=== PATIENT | male | born 1980 | race Caucasian/White ===

== ENCOUNTER 2019-11-28 10:34 | Day surgery (SDC) | payer SELFPAY ==
[~2019-11-28] VITALS: Ht 182.9 cm; Wt 118.7 kg
[2019-11-28] VITALS (17 sets, daily range): BP systolic 119–139; BP diastolic 73–89
[2019-11-28] MEDS: CEFAZOLIN SODIUM 1 GM VIAL IVP SCH ×2 (12:30→15:37)
[2019-11-28 12:45] LABS: BASOPHILS % (AUTO) 0.7 % (0.0-5.0); EOSINOPHILS % (AUTO) 1.2 % (0.0-8.0); HEMATOCRIT 45.6 % (42-54); MEAN CORPUSCULAR HEMOGLOBIN 31.2 pg (27.0-33.0); MEAN CORPUSCULAR HGB CONC 33.8 g/dL (32.0-36.0); MEAN CORPUSCULAR VOLUME 92.5 fL (79-99); NEUTROPHILS % (AUTO) 66.8 % (40.0-77.0); PLATELET COUNT (AUTO) 199 K/uL (130-400); RED BLOOD CELL COUNT(AUTO) 4.93 MIL/uL (4.50-6.20); RED CELL DISTRIBUTION WIDTH 12.5 % (11.0-15.5)
[2019-11-28 12:57] LABS: CREATININE 1.1 mg/dL (0.5-1.5); POTASSIUM 4.4 mmol/L (3.5-5.1)
[2019-11-28] MEDS ORDERED: LACTATED RINGERS 1000ML 1,000 ML IV ONE (13:19)
[2019-11-28] MEDS ORDERED: IBUP-2070 PO (13:21)
[2019-11-28] MEDS ORDERED: ACET1TAB12 PO (13:21)
--- NOTE | 2019-11-28 13:29 | NUR ---
POTENTIAL FOR INFECTION: CLIPPED LEFT HAND / WRIST PER CHANCE SOSA, FOLLOWED BY WIPING WITH TAYLOR: 2% CHLORHEXIDINE GLUCONATE CLOTH PATIENTS PRE-OP SKIN PREP.
[2019-11-28] MEDS ORDERED: PROPOFOL 10 MG/ML 20ML VIAL IV ONE (13:47)
[2019-11-28] MEDS ORDERED: GLYCOPYRROLATE 1 MG/5 ML SYRINGE ONE (13:47)
[2019-11-28] MEDS ORDERED: ONDANSETRON HCL 4 MG/2 ML VIAL ONE (13:47)
[2019-11-28] MEDS ORDERED: MIDAZOLAM HCL 1 MG/ML 2ML VIAL ONE (13:47)
[2019-11-28] MEDS ORDERED: DEXAMETHASONE SOD PHOSPHATE 10MG/ML 1ML VIAL ONE (13:47)
[2019-11-28] MEDS ORDERED: NEOSTIGMINE 5MG/5ML SYR IV ONE (13:47)
[2019-11-28] MEDS ORDERED: LIDOCAINE PF 2% 5ML ABBOJECT ONE (13:47)
[2019-11-28] MEDS ORDERED: ROCURONIUM 10MG/1ML SYR 10 MG/ML ML ONE (13:48)
[2019-11-28] MEDS ORDERED: FENTANYL CITRATE PF 50 MCG/1 ML 2ML VIAL ONE ×3 (13:48→16:50)
[2019-11-28] MEDS ORDERED: ROPIVACAINE 0.5% 5MG/ML 30ML IJ ONE (13:54)
[2019-11-28] MEDS ORDERED: EPHEDRINE SULFATE 50 MG/ML AMPULE ONE (15:47)
[2019-11-28] MEDS ORDERED: HYDR-4457 PO (17:46)
[2019-11-28] MEDS ORDERED: CEPH-578 PO (18:00)
== END 2019-11-28 19:25 | disposition home or self-care (01) ==
LOC: DAH 10:34
PROVIDERS: ATTEND Orthopaedic Surgery
DX: S52.562A Barton's fracture of left radius, initial encounter for closed fracture (principal); M25.532 Pain in left wrist; F17.210 Nicotine dependence, cigarettes, uncomplicated; Z72.89 Other problems related to lifestyle; Z90.49 Acquired absence of other specified parts of digestive tract; W19.XXXA Unspecified fall, initial encounter; Z91.81 History of falling; Y93.89 Activity, other specified; Y92.481 Parking lot as the place of occurrence of the external cause; Z79.899 Other long term (current) drug therapy
CPT/HCPCS: 25608; 36415; 64415; 73110; 76942; 80048; 85025; A4215; A4221; A4222; A4223; A4565; A4649; A4663; A4930; A5120; A6223; C1713 ×6; J0690; J1100; J2001; J2250; J2405; J2704; J2710; J2795; J3010 ×3; J3490 ×2; J7030 ×2; J7120; Q4051